=== PATIENT | female | born 1945 | race Caucasian/White ===

== ENCOUNTER → 2017-11-27 | Outpatient (CLI) | payer OTHER, MEDICARE ==
[~2017-11-27] MED LIST: ALEVE220 MG PO; ASPIRIN325 PO; BACTRIM DS TAB1 EACH PO; CENTRUM SILVER1 EAC4 PO; CINNAMON3.7 ML PO; CLARITIN10 MG PO; CLORAZEPATE DI7.5 M1 PO; COLACE100 MG PO; CYFOLEX CAPSUL1 EACH PO; FLEXERIL PO; FOLBIC RF TABL1 EACH PO; HYDROCODONE-AP1 EAC6 PO; IBUPROFEN 600600 M1 PO; IBUPROFEN 800800 M1 PO; LASIX 20 MG TAB20 MG PO; LOSARTAN-HCTZ1 EACH PO; MAGOX 400400 MG PO; MECLIZINE HCL12.5 MG PO; METAMUCIL PAC1 UDPKT PO; MILK OF MA2400 MG/10 PO; MOBIC15 MG PO; NEURONTIN300 MG PO; OIL OF OREGAN1500 MG PO; OXYCODONE HCL 55 MG PO; PERCOCET 7.5-31 EACH PO; TRAMADOL 50 MG50 MG PO; VITAMINC500 PO; XARELTO10 MG PO; [UNRECOGNIZED DRUG - CODE]
== END ==
LOC: M.RAD 11:59
DX: S52.044A Nondisplaced fracture of coronoid process of right ulna, initial encounter for closed fracture (principal); M19.011 Primary osteoarthritis, right shoulder; M85.811 Other specified disorders of bone density and structure, right shoulder; M25.521 Pain in right elbow; M48.02 Spinal stenosis, cervical region; M50.123 Cervical disc disorder at C6-C7 level with radiculopathy; X58.XXXA Exposure to other specified factors, initial encounter; Y93.89 Activity, other specified; Y92.89 Other specified places as the place of occurrence of the external cause; Y99.8 Other external cause status

== ENCOUNTER → 2017-12-03 | Outpatient (CLI) | payer OTHER, MEDICARE | LOC: M.MRI 07:10 | DX: S83.242A Other tear of medial meniscus, current injury, left knee, initial encounter (principal); M25.462 Effusion, left knee; M71.22 Synovial cyst of popliteal space [Baker], left knee; M17.12 Unilateral primary osteoarthritis, left knee; X58.XXXA Exposure to other specified factors, initial encounter; Y93.89 Activity, other specified; Y92.89 Other specified places as the place of occurrence of the external cause; Y99.8 Other external cause status ==

== ENCOUNTER → 2017-12-04 | Outpatient (CLI) | payer OTHER, MEDICARE | LOC: M.MRI 07:12 | DX: S46.811A Strain of other muscles, fascia and tendons at shoulder and upper arm level, right arm, initial encounter (principal); S43.491A Other sprain of right shoulder joint, initial encounter; M19.011 Primary osteoarthritis, right shoulder; X58.XXXA Exposure to other specified factors, initial encounter; Y93.89 Activity, other specified; Y92.89 Other specified places as the place of occurrence of the external cause; Y99.8 Other external cause status ==

== ENCOUNTER → 2017-12-08 | Outpatient (CLI) | payer OTHER, MEDICARE | LOC: M.MRI 11-30 08:08 | DX: M48.061 Spinal stenosis, lumbar region without neurogenic claudication (principal); M51.26 Other intervertebral disc displacement, lumbar region; M47.892 Other spondylosis, cervical region; M47.896 Other spondylosis, lumbar region; M50.221 Other cervical disc displacement at C4-C5 level; M50.222 Other cervical disc displacement at C5-C6 level; M50.223 Other cervical disc displacement at C6-C7 level; N28.1 Cyst of kidney, acquired ==

== ENCOUNTER → 2017-12-16 | Outpatient (CLI) | payer OTHER, MEDICARE | LOC: M.NUC 12-14 14:53 | DX: G89.29 Other chronic pain (principal); M54.5 Low back pain; M25.511 Pain in right shoulder; M25.512 Pain in left shoulder ==

== ENCOUNTER → 2017-12-29 | Outpatient (CLI) | payer OTHER, MEDICARE | LOC: M.CT 10:24 | DX: M47.897 Other spondylosis, lumbosacral region (principal); G95.89 Other specified diseases of spinal cord ==

== ENCOUNTER → 2018-01-06 | Outpatient (CLI) | payer OTHER, MEDICARE | LOC: M.RAD 09:54 | DX: M47.816 Spondylosis without myelopathy or radiculopathy, lumbar region (principal); C90.00 Multiple myeloma not having achieved remission; M54.2 Cervicalgia; M25.511 Pain in right shoulder; M25.512 Pain in left shoulder; G89.29 Other chronic pain ==

== ENCOUNTER 2018-03-23 21:45 | Emergency (ER) | payer OTHER, MEDICARE ==
[~2018-03-23] VITALS: Ht 154.9 cm; Wt 127.0 kg
[~2018-03-23 21:45] MED LIST changes: -ALEVE220 MG PO; -BACTRIM DS TAB1 EACH PO; -CENTRUM SILVER1 EAC4 PO; -CINNAMON3.7 ML PO; -CYFOLEX CAPSUL1 EACH PO; -FLEXERIL PO; -FOLBIC RF TABL1 EACH PO; -MAGOX 400400 MG PO; -MOBIC15 MG PO; -NEURONTIN300 MG PO; -OIL OF OREGAN1500 MG PO; -PERCOCET 7.5-31 EACH PO; -VITAMINC500 PO
[2018-03-23 22:13] LABS: URINE BILIRUBIN NEGATIVE (Negative); URINE BLOOD 3+ (Negative); URINE CLARITY CLEAR; URINE COLOR YELLOW; URINE GLUCOSE-RANDOM NEGATIVE (Negative); URINE KETONES NEGATIVE (Negative); URINE LEUKOCYTES-REFLEX NEGATIVE (Negative); URINE NITRITE-REFLEX NEGATIVE (Negative); URINE PROTEIN NEGATIVE (Negative); URINE UROBILINOGEN 0.2 E.U./dl (0.2-1.0)
[2018-03-23 22:20] LABS: CASTS None Seen /LPF (None Seen); SQUAMOUS >10 Many /LPF (0-3)
[2018-03-23 22:21] LABS: BACTERIA-REFLEX 1-9 Few /HPF (None Seen); CRYSTALS None Seen /LPF (None Seen); URINE RBC >20 Many /HPF (0-2); URINE WBC-REFLEX 0-5 Rare /HPF (0-5)
[2018-03-23 22:42] LABS: ABSOLUTE BASOPHILS 0.2 thou/uL (0.0-0.2); ABSOLUTE EOSINOPHILS 0.3 thou/uL (0.0-0.7); ABSOLUTE LYMPHOCYTES 2.7 thou/uL (0.8-5.3); ABSOLUTE MONOCYTES 0.5 thou/uL (0.0-1.2); ABSOLUTE NEUTROPHILS 8.3 thou/uL (1.6-8.1); BASOPHILS 1.3 %; EOSINOPHILS 2.3 %; HEMATOCRIT 38.9 % (37.0-47.0); HEMOGLOBIN 12.6 gm/dL (12.0-15.0); LYMPHOCYTES 22.9 %; MCH 28.6 pg (26.0-34.0); MCHC 32.5 g/dL (28.0-37.0); MCV 87.9 fL (80.0-100.0); MPV 7.7 fl. (7.2-11.1); NUCLEATED RBCS 0 /100WBC; PLATELET COUNT* 281 thou/uL (150-400); POLYS 69.5 %; RBC 4.42 mil/uL (4.20-5.00); RDW-CV 14.2 % (10.5-14.5)
[2018-03-23 22:49] LABS: CALCIUM 9.2 mg/dL (8.5-10.1); CREATININE 1.3 mg/dL (0.6-1.3); POTASSIUM 4.4 mmol/L (3.5-5.1)
[2018-03-23 22:54] LABS: ALBUMIN 3.4 g/dL (3.4-5.0); TOTAL BILIRUBIN 0.2 mg/dL (<0.1-1.0); TOTAL PROTEIN 7.1 g/dL (6.4-8.2)
[2018-03-23] MEDS ORDERED: FLEXERIL PO (23:54)
[2018-03-23] MEDS ORDERED: BACTRIM DS TAB1 EACH PO (23:54)
[2018-03-24 00:21] VITALS: BP 166/78
== END 2018-03-24 00:24 | disposition home or self-care (01) ==
LOC: M.ERS 21:45
PROVIDERS: Nurse Practitioner Family
DX: S39.012A Strain of muscle, fascia and tendon of lower back, initial encounter (principal); N30.90 Cystitis, unspecified without hematuria; I10 Essential (primary) hypertension; Z88.1 Allergy status to other antibiotic agents; Z88.8 Allergy status to other drugs, medicaments and biological substances; X58.XXXA Exposure to other specified factors, initial encounter; Y93.89 Activity, other specified; Y92.89 Other specified places as the place of occurrence of the external cause; Y99.8 Other external cause status

== ENCOUNTER → 2018-04-20 | Outpatient (CLI) | payer OTHER, MEDICARE ==
[~2018-04-20] MED LIST changes: +ALEVE220 MG PO; +BACTRIM DS TAB1 EACH PO; +CENTRUM SILVER1 EAC4 PO; +CINNAMON3.7 ML PO; +CYFOLEX CAPSUL1 EACH PO; +FLEXERIL PO; +FOLBIC RF TABL1 EACH PO; +MAGOX 400400 MG PO; +MOBIC15 MG PO; +NEURONTIN300 MG PO; +OIL OF OREGAN1500 MG PO; +PERCOCET 7.5-31 EACH PO; +VITAMINC500 PO
== END ==
LOC: M.RAD 11:37
DX: M47.898 Other spondylosis, sacral and sacrococcygeal region (principal); M47.816 Spondylosis without myelopathy or radiculopathy, lumbar region; D25.9 Leiomyoma of uterus, unspecified; M47.814 Spondylosis without myelopathy or radiculopathy, thoracic region

== ENCOUNTER → 2018-06-03 | Outpatient (CLI) | payer OTHER, MEDICARE ==
[2018-06-03 10:26] LABS: ABSOLUTE BASOPHILS 0.1 thou/uL (0.0-0.2); ABSOLUTE EOSINOPHILS 0.4 thou/uL (0.0-0.7); ABSOLUTE LYMPHOCYTES 2.1 thou/uL (0.8-5.3); ABSOLUTE MONOCYTES 0.4 thou/uL (0.0-1.2); ABSOLUTE NEUTROPHILS 5.4 thou/uL (1.6-8.1); EOSINOPHILS 4.3 %; HEMATOCRIT 37.3 % (37.0-47.0); HEMOGLOBIN 12.3 gm/dL (12.0-15.0); LYMPHOCYTES 25.7 %; MCHC 33.1 g/dL (28.0-37.0); MCV 87.7 fL (80.0-100.0); MONOCYTES 4.7 %; MPV 7.9 fl. (7.2-11.1); NUCLEATED RBCS 0 /100WBC; PLATELET COUNT* 255 thou/uL (150-400); POLYS 64.3 %; RBC 4.26 mil/uL (4.20-5.00); RDW-CV 14.1 % (10.5-14.5); WBC 8.4 thou/uL (4.0-11.0)
[2018-06-03 10:46] LABS: ALBUMIN 3.5 g/dL (3.4-5.0); CALCIUM 9.3 mg/dL (8.5-10.1); POTASSIUM 3.8 mmol/L (3.5-5.1); TOTAL BILIRUBIN 0.4 mg/dL (<0.1-1.0); TOTAL PROTEIN 6.9 g/dL (6.4-8.2)
[2018-06-07 17:12] LABS: GLOBULIN TOTAL 3.2 g/dL (2.2-3.9); M-SPIKE Not Observed g/dL (Not Observed)
== END ==
LOC: M.CT 09:33 → M.LAB 10:00 → M.CT 11:00
DX: K80.20 Calculus of gallbladder without cholecystitis without obstruction (principal); D49.2 Neoplasm of unspecified behavior of bone, soft tissue, and skin; D25.9 Leiomyoma of uterus, unspecified; K42.9 Umbilical hernia without obstruction or gangrene; M47.816 Spondylosis without myelopathy or radiculopathy, lumbar region; R91.8 Other nonspecific abnormal finding of lung field

== ENCOUNTER → 2018-06-25 | Outpatient (CLI) | payer OTHER, MEDICARE | LOC: M.MRI 10:47 | DX: N28.9 Disorder of kidney and ureter, unspecified (principal); I10 Essential (primary) hypertension ==

== ENCOUNTER → 2018-08-23 | Outpatient (CLI) | payer OTHER, MEDICARE ==
[2018-08-23 16:49] LABS: CREATININE 1.1 mg/dL (0.6-1.3)
== END ==
LOC: M.LAB 16:13 → M.MRI 16:30 → M.LAB 16:30
PROVIDERS: Orthopaedic Surgery
DX: M79.601 Pain in right arm (principal)

== ENCOUNTER → 2018-09-16 | Outpatient (CLI) | payer OTHER, MEDICARE | LOC: M.MRI 09:51 → M.LAB 10:30 → M.MRI 11:30 | DX: N28.9 Disorder of kidney and ureter, unspecified (principal); K42.9 Umbilical hernia without obstruction or gangrene ==

== ENCOUNTER 2018-09-22 10:27 | Emergency (ER) | payer OTHER, MEDICARE ==
[~2018-09-22] VITALS: Ht 154.9 cm; Wt 124.7 kg
[~2018-09-22 10:27] MED LIST changes: -ALEVE220 MG PO; -CENTRUM SILVER1 EAC4 PO; -CINNAMON3.7 ML PO; -CYFOLEX CAPSUL1 EACH PO; -FOLBIC RF TABL1 EACH PO; -MAGOX 400400 MG PO; -MOBIC15 MG PO; -NEURONTIN300 MG PO; -OIL OF OREGAN1500 MG PO; -PERCOCET 7.5-31 EACH PO; -VITAMINC500 PO
[2018-09-22] MEDS ORDERED: ALEVE220 MG PO (10:38)
[2018-09-22] MEDS ORDERED: CYFOLEX CAPSUL1 EACH PO (10:39)
[2018-09-22] MEDS ORDERED: CINNAMON3.7 ML PO (10:39)
[2018-09-22] MEDS ORDERED: FOLBIC RF TABL1 EACH PO (10:39)
[2018-09-22] MEDS ORDERED: OIL OF OREGAN1500 MG PO (10:39)
[2018-09-22] MEDS ORDERED: CENTRUM SILVER1 EAC4 PO (10:39)
[2018-09-22] MEDS ORDERED: VITAMINC500 PO (10:39)
[2018-09-22] MEDS ORDERED: MAGOX 400400 MG PO (10:39)
[2018-09-22] MEDS ORDERED: MOBIC15 MG PO (14:49)
[2018-09-22] MEDS ORDERED: PERCOCET 7.5-31 EACH PO (14:49)
[2018-09-22] MEDS ORDERED: NEURONTIN300 MG PO (14:52)
[2018-09-22 15:04] VITALS: BP 144/70
== END 2018-09-22 15:05 | disposition home or self-care (01) ==
LOC: M.ERS 10:27
DX: S42.301A Unspecified fracture of shaft of humerus, right arm, initial encounter for closed fracture (principal); W19.XXXA Unspecified fall, initial encounter; Y93.89 Activity, other specified; Y92.89 Other specified places as the place of occurrence of the external cause; Y99.8 Other external cause status; I10 Essential (primary) hypertension; Z88.1 Allergy status to other antibiotic agents; Z88.8 Allergy status to other drugs, medicaments and biological substances

== ENCOUNTER → 2018-09-24 | Outpatient (CLI) | payer OTHER, MEDICARE ==
[~2018-09-24] MED LIST changes: +ALEVE220 MG PO; +CENTRUM SILVER1 EAC4 PO; +CINNAMON3.7 ML PO; +CYFOLEX CAPSUL1 EACH PO; +FOLBIC RF TABL1 EACH PO; +MAGOX 400400 MG PO; +MOBIC15 MG PO; +NEURONTIN300 MG PO; +OIL OF OREGAN1500 MG PO; +PERCOCET 7.5-31 EACH PO; +VITAMINC500 PO
[2018-09-24 14:49] LABS: ABSOLUTE BASOPHILS 0.1 thou/uL (0.0-0.2); ABSOLUTE EOSINOPHILS 0.3 thou/uL (0.0-0.7); ABSOLUTE LYMPHOCYTES 2.5 thou/uL (0.8-5.3); ABSOLUTE MONOCYTES 0.5 thou/uL (0.0-1.2); ABSOLUTE NEUTROPHILS 6.4 thou/uL (1.6-8.1); EOSINOPHILS 3.1 %; HEMATOCRIT 36.8 % (37.0-47.0); HEMOGLOBIN 12.1 gm/dL (12.0-15.0); LYMPHOCYTES 25.1 %; MCHC 32.9 g/dL (28.0-37.0); MPV 7.8 fl. (7.2-11.1); NUCLEATED RBCS 0 /100WBC; PLATELET COUNT* 265 thou/uL (150-400); POLYS 65.8 %; RBC 4.18 mil/uL (4.20-5.00); RDW-CV 14.5 % (10.5-14.5); WBC 9.8 thou/uL (4.0-11.0)
[2018-09-24 14:59] LABS: ALBUMIN 3.1 g/dL (3.4-5.0); CREATININE 1.2 mg/dL (0.6-1.3); POTASSIUM 3.5 mmol/L (3.5-5.1); TOTAL BILIRUBIN 0.4 mg/dL (<0.1-1.0); TOTAL PROTEIN 6.7 g/dL (6.4-8.2)
== END ==
LOC: M.LAB 14:04
PROVIDERS: Orthopaedic Surgery
DX: M84.421A Pathological fracture, right humerus, initial encounter for fracture (principal); D49.2 Neoplasm of unspecified behavior of bone, soft tissue, and skin

== ENCOUNTER → 2019-02-09 | Outpatient (CLI) | payer OTHER, MEDICARE ==
[~2019-02-09] MED LIST changes: +GABAPENTIN 100100 MG PO; +POTASSIUM20 PO
== END ==
LOC: M.RAD 12:50
DX: S42.391D Other fracture of shaft of right humerus, subsequent encounter for fracture with routine healing (principal); Z88.1 Allergy status to other antibiotic agents; X58.XXXD Exposure to other specified factors, subsequent encounter

== ENCOUNTER → 2019-04-28 | Outpatient (CLI) | payer OTHER, MEDICARE | LOC: M.ULTRA 10:11 | DX: N28.1 Cyst of kidney, acquired (principal) ==

== ENCOUNTER → 2019-08-19 | Outpatient (CLI) | payer OTHER, MEDICARE | LOC: M.LAB 12:30 → M.MRI 13:30 → M.LAB 16:30 → M.MRI 17:30 | DX: D49.2 Neoplasm of unspecified behavior of bone, soft tissue, and skin (principal) ==

== ENCOUNTER → 2019-10-04 | Outpatient (CLI) | payer OTHER, MEDICARE | LOC: M.LAB 10:30 → M.MRI 11:30 | DX: N28.1 Cyst of kidney, acquired (principal); N28.89 Other specified disorders of kidney and ureter ==

== ENCOUNTER → 2019-11-23 | Outpatient (CLI) | payer MEDICARE, OTHER | LOC: M.ULTRA 10:39 | DX: N28.1 Cyst of kidney, acquired (principal) ==

== ENCOUNTER → 2019-11-30 | Outpatient (CLI) | payer MEDICARE, OTHER | LOC: M.MRI 12:13 | DX: S83.242A Other tear of medial meniscus, current injury, left knee, initial encounter (principal); M25.762 Osteophyte, left knee; M25.462 Effusion, left knee; X58.XXXA Exposure to other specified factors, initial encounter; Y93.89 Activity, other specified; Y92.89 Other specified places as the place of occurrence of the external cause; Y99.8 Other external cause status ==

== ENCOUNTER → 2019-12-08 | Outpatient (CLI) | payer MEDICARE, OTHER | LOC: M.RAD 11:35 | DX: R05 Cough (principal); Z95.2 Presence of prosthetic heart valve ==

== ENCOUNTER 2019-12-26 05:43 | Inpatient (IN) | payer MEDICARE, OTHER ==
[2019-12-15 09:26] LABS: ABSOLUTE EOSINOPHILS 0.2 thou/uL (0.0-0.7); ABSOLUTE LYMPHOCYTES 0.8 thou/uL (0.8-5.3); ABSOLUTE MONOCYTES 0.4 thou/uL (0.0-1.2); ABSOLUTE NEUTROPHILS 3.8 thou/uL (1.6-8.1); BASOPHILS 0.6 %; HEMATOCRIT 32.4 % (37.0-47.0); HEMOGLOBIN 11.1 gm/dL (12.0-15.0); MCH 30.9 pg (26.0-34.0); MCHC 34.3 g/dL (28.0-37.0); MONOCYTES 7.2 %; MPV 6.7 fl. (7.2-11.1); NUCLEATED RBCS 0 /100WBC; PLATELET COUNT* 216 thou/uL (150-400); POLYS 73.2 %; RDW-CV 14.7 % (10.5-14.5); WBC 5.2 thou/uL (4.0-11.0)
[2019-12-15 09:34] LABS: APTT 24.7 Seconds (25.0-31.3)
[2019-12-15 09:37] LABS: ALBUMIN 2.9 g/dL (3.4-5.0); CALCIUM 8.5 mg/dL (8.5-10.1); POTASSIUM 3.9 mmol/L (3.5-5.1); TOTAL BILIRUBIN 0.3 mg/dL (<0.1-1.0)
[2019-12-15 11:18] LABS: ESR (SEDRATE) 50 mm/hr (0-30)
[2019-12-16 02:06] LABS: GLYCOHEMOGLOBIN (HGB A1C) 5.6 % (4.8-5.6)
[~2019-12-26] VITALS: Ht 157.5 cm; Wt 118.8 kg
--- NOTE | ~2019-12-26 | OP ---
[address] [address] OPERATIVE REPORT Name: NIEVES PONCE Room: [address] IN .R.#: [id number] Admission: 12/26/19 Attend Phys: Osbaldo Vasquez MD Discharge: Date of : 47 Report #: [id number] THIS REPORT FOR: //name// cc: Mario Miles MD, David L. MD ~ THIS REPORT FOR: //name// CC: Osbaldo Miles DICTATED BY: Taco Santo DO DATE OF SERVICE: 12/26/2019 PREOPERATIVE DIAGNOSES: 1. Advanced osteoarthritis of the left knee. 2. Morbid obesity with body mass index of 48. POSTOPERATIVE DIAGNOSES: 1. Advanced osteoarthritis of the left knee. 2. Morbid obesity with body mass index of 48. PROCEDURE PERFORMED: Left total knee arthroplasty. SURGEON: Mario Nava DO. ASSISTANTS: Shirin Moran PA-C; Taco Santo DO.; Endy Rodriguez DO. ANESTHESIA: General, local nerve block per Anesthesia. ESTIMATED BLOOD LOSS: 100 mL. SPECIMENS: None. COMPLICATIONS: None. ANTIBIOTICS: 2 grams Ancef IV piggyback preop. FINDINGS: The patient had significant eburnated bone, osteophytic lipping and sclerosis noted of all 3 compartments of the knee on gross inspection. There were subchondral cystic changes appreciated. There was hypertrophic synovium, but gross inspection of the synovium appeared normal in appearance. DISPOSITION: Stable to PACU. IMPLANTS: [address] [address] OPERATIVE REPORT Name: NIEVES PONCE Tamiko Room: [address] IN .R.#: [id number] Admission: 12/26/19 Attend Phys: Osbaldo Vasquez MD Discharge: Date of : 47 Report #: [id number] 1. A size 6 PS David Persona femur. 2. A size E anatomic David tibial baseplate. 3. A 12 mm PS polyethylene insert and then a size 31 mm patella button. 4. Two bags of Palacos cement with gentamicin. INDICATIONS FOR PROCEDURE: The patient is a pleasant 74-year-old female, who has been dealing with longstanding left knee pain and degenerative joint changes for many years. These symptoms have worsened over the last year. She attempted conservative measures for at least 6 months. These have not been beneficial and she continued to worsen and become more sedentary and her pain is affecting her ADLs. Risks, benefits, complications, alternatives and indications for surgery were discussed with her. She voiced understanding and wished to proceed. DESCRIPTION OF PROCEDURE: The patient was seen in the preoperative area. Correct operative site was marked. Verbal and written consent was obtained. She was transferred to the operative suite and placed supine on the table, given benefit of general anesthesia by the anesthesia team. Left lower extremity and a well-padded tourniquet placed, which was inflated for a total of 50 minutes at 300 mmHg during the procedure. Left lower extremity was prepped and draped in normal sterile fashion. Timeout was performed, all in attendance were in agreement with correct operative site and procedure to be performed. A 10 blade scalpel was used to make the anterior longitudinal incision over the knee. It was taken down sharply to the level of the capsule. Once we had adequate visualization of this, a new 10 blade scalpel was used to perform a medial parapatellar arthrotomy. We then noted findings as stated above and utilizing a rongeur. We removed some osteophytes of the distal femur and then gained access for our intramedullary guide with the drill. Intramedullary guide was placed and taken extra 2 mm of cut or valgus block was pinned in place. An oscillating saw was used to resect distal femur. Excess bone osteophytes were removed with a rongeur and her AP sizer was then placed on the distal femur. This was measured as a size 6 and after utilizing the 3 degrees of external rotation, drill holes were made and then the 4-in-1 cutting block was malleted into place, held cross pins. Oscillating saw was once again used to perform resection of 4-in-1 cuts and excess bone osteophytes once again removed with a rongeur. The cutting block was removed and our external tibial guide was placed and taking 10 mm off our high lateral side utilizing the depth stylus. Our cutting block was pinned in place and then oscillating saw was once again used to resect the proximal tibia. Excess bone osteophyte was once again removed with a rongeur and electrocautery from soft tissue attachments and the knee was taken through extension, 12 block was placed and found to have good balance with varus and valgus stress in full extension. We then used a size E tibia, held in place with bone screws and malleted into place our distal femoral trial and then resected for posterior stabilized box. A 12 mm PS poly was then inserted. The knee was taken through range of motion, [address] [address] OPERATIVE REPORT Name: NIEVES PONCE Room: [address] IN ..#: [id number] Admission: 12/26/19 Attend Phys: Osbaldo Vasquez MD Discharge: Date of : 47 Report #: [id number] found to have excellent motion and balancing in all planes. The patella was then resected utilizing oscillating saw, denervated with electrocautery and then measured at 31. Our drill holes were made for the three pegs. Trial patella was inserted. Knee was taken through range of motion, found to have excellent patellar tracking. We then completed preparation of the distal femur, removed the trial implants with the exception of the tibia, which was further prepared with intramedullary reamer followed by the cruciate punch. The tibial tray was then removed as well. The cut bony surfaces were then thoroughly irrigated with pulsatile lavage. The meniscus and soft tissue were excised appropriately as well as any remaining osteophytes of the proximal tibia or distal femur. Cement was mixed on the back table under vacuum suction and placed on the cut bony surfaces as well as the final implants were malleted into place. Excess cement was removed with Ana [place] and our final 12 mm poly was inserted and secured in place appropriately. Knee was held in approximately 10 degrees of flexion while cement hardened and the patellar clamp was left in place as well. The knee was then once again taken through range of motion, found to have excellent balancing in all planes and good full range of motion. The joint was thoroughly irrigated with pulsatile lavage once again and make sure there was no synovitis remained. Capsule was then closed utilizing #1 Vicryl in [id number] fashion, followed by #1 running Stratafix barbed suture. The superficial tissues were irrigated with pulsatile lavage and the skin was closed utilizing a 2-0 Vicryl in inverted subcuticular fashion followed by running subcuticular 3-0 Stratafix and then finally covered with Dermabond skin glue. A sterile Mepilex dressing was placed and then the patient was awoken from anesthesia and transferred to PACU in stable condition. All needle and scrub counts were correct at the end of the case x 2. I attest that Dr. Nava was present through all critical decision making aspects of the case. By: [id number] Nava DO /nt
[~2019-12-26 05:43] MED LIST changes: +ADVIL200 M3 PO; +ALLOPURINOL 10100 M3 PO
[2019-12-26 07:30] VITALS: BP 141/74
[2019-12-26 15:11] VITALS: BP 169/69
--- NOTE | 2019-12-26 16:58 | NUR ---
PT ALERT AND ORIENTED AND DROWSY. PT VOMITED POST OP DURING THERAPY. PT DENIES ANY PAIN AT THIS TIME. PT EDUCATED ON USING CALL LIGHT WHEN NEEDING PAIN MEDS. PT UP TO CHAIR. FALL RISK PRECAUTIONS IN PLACE. HOURLY ROUNDING COMPLETED. WILL CONTINUE TO MONITOR.
[2019-12-26 20:50] VITALS: BP 119/57
[2019-12-27] VITALS: BP 109/55
[2019-12-27 04:00] VITALS: BP 140/64
--- NOTE | 2019-12-27 05:57 | NUR ---
PT A&O, ON 2L BY NC WITH CAPNO. MEDS GIVEN ORDERED. PAIN MANAGED WITH OXYCONTIN AND NORCO. UP TO THE BSC WITH 2. NO N/V THIS SHIFT. POLAR IN PLACE. IVF RUNNING ORDERED. HOURLY ROUNDING COMPLETED. WILL CONTINUE TO MONITOR.
[2019-12-27 07:20] VITALS: BP 109/47
[2019-12-27 09:42] LABS: HEMATOCRIT 27.7 % (37.0-47.0); HEMOGLOBIN 9.3 gm/dL (12.0-15.0)
--- NOTE | 2019-12-27 15:07 | NUR ---
SPOKE WITH PT. SHE WAS ALERT AND ORIENTED. SHE SAID SHE LIVES WITH HER . HE CAN ASSIST HER NEEDED AT DISCHARGE. WILL NEED A FRONT WHEEL WALKER. SHE HAS AN OLD ONE THAT HAS 4 WHEELS ON IT. AUTH OBTAINED FROM [employer]. THERAPY TO DISPENSE A FWW UPON DISCHARGE. ORDER IN FRONT OF CHART. FAXED ORDER TO [facility] [facility]. PT.SAID NORMALLY SHE IS INDEPENDENT AT HOME. SHE WOULD LIKE TO HAVE HOME HEALTH TO START. SHE CANNOT REMEMBER NAME OF AGENCY SHE USED AFTER SNF IN 2017. HOPES TO GO HOME TOMORROW EVENING. CM WILL CALL IN PRESCRIPTION FOR ELIQUIS WRITTEN TO HER PHARMACY AND CHECK COPAY.
[2019-12-27 15:13] VITALS: BP 109/47
[2019-12-27 16:00] VITALS: BP 110/58
--- NOTE | 2019-12-27 17:20 | NUR ---
PT REMAINED ALERT AND ORIENTED. PAIN MEDS GIVEN ORDERED. PT RESTING IN BED AND UP FOR MEALS. PT WORKED WITH THERAPY. STAYING OVERNIGHT FOR more therapies and pain control. fall risk precautions in place. hourly rounding completed. will continue to monitor.
[2019-12-27 21:05] VITALS: BP 115/58
--- NOTE | 2019-12-28 03:53 | NUR ---
REFUSED LABS 0352 ON 12/28/19
--- NOTE | 2019-12-28 04:28 | NUR ---
PATIENT REQUIRES EXTRA TIME TO GET UP TO COMMODE. USING POLAR PACK, LEV VANN AND SCD. THURSDAY IS POD#2. RECEIVED SCHEDULED OXYCONTIN AND MEDS SCHEDULED. PRN HYDROCODONE FOR PAIN. REFUSED AM LABS WHICH WERE HCT AND HGB. PLAN IS TO WORK WITH THERAPY AND PAIN MANAGMENT. WILL CONTINUE TO FOLLOW PLAN OF CARE.
[2019-12-28 08:00] VITALS: BP 119/47
[2019-12-28 08:20] LABS: HEMATOCRIT 25.9 % (37.0-47.0); HEMOGLOBIN 8.9 gm/dL (12.0-15.0)
--- NOTE | 2019-12-28 16:36 | NUR ---
PT REMAINED ALERT AND ORIENTED. PT DROWSY DURING SHIFT, PT BELIEVES GIVING TO MUCH PAIN MEDS, PT EDUCATED ON USING CALL LIGHT WHEN NEEDING PAIN MEDS. PT WORKED WITH THERAPY. FALL RISK PRECAUTIONS IN PLACE. HOURLY ROUNDING COMPLETED. WILL CONTINUE TO MONITOR.
[2019-12-28 19:33] VITALS: BP 150/43
--- NOTE | 2019-12-29 04:18 | NUR ---
ASSUMED CARE OF PT 12/28/19 AT APPROX 1930, PT A&OX4, PT ON ROOM AIR, VSS, CPM MONITORED, PAIN MEDS REQUESTED 1X THIS SHIFT. ASSESSMENTS AND HOURLY ROUNDINGS COMPLETED. WILL CONTINUE TO MONITOR.
[2019-12-29 08:14] VITALS: BP 146/62
--- NOTE | 2019-12-29 12:08 | NUR ---
SPOKE WITH PT.AND ABOUT GOING TO SNF DUE TO SLOW PROGRESSION IN THERAPY. SEEMS TO FAVOR THIS. PT.SAID SHE WOULD RATHER GO HOME BUT 'IF THAT IS WHAT HE WANTS, I WILL GO TO SNF FOR A SHORT STAY.' IMPRESSED UPON HER THAT WE WANT A SAFE DISCHARGE PLAN FOR HER. SHE SAID [facility]. ASKED ABOUT [facility], SINCE THEY LIVE IN [place]. PT.AGREEABLE. SAID 'WHATEVER IS EASIER FOR HIM'. REFERRAL FAXED TO MYESHA AT [facility] TO REVIEW.
[2019-12-29 13:45] LABS: HEMATOCRIT 24.9 % (37.0-47.0); HEMOGLOBIN 8.3 gm/dL (12.0-15.0); MCH 31.1 pg (26.0-34.0); MCHC 33.4 g/dL (28.0-37.0); MCV 93.1 fL (80.0-100.0); MPV 7.3 fl. (7.2-11.1); NUCLEATED RBCS 0 /100WBC; PLATELET COUNT* 176 thou/uL (150-400); RBC 2.67 mil/uL (4.20-5.00); RDW-CV 14.9 % (10.5-14.5); WBC 7.3 thou/uL (4.0-11.0)
[2019-12-29 14:01] LABS: ALBUMIN 2.3 g/dL (3.4-5.0); CALCIUM 8.1 mg/dL (8.5-10.1); POTASSIUM 3.8 mmol/L (3.5-5.1); TOTAL BILIRUBIN 0.4 mg/dL (<0.1-1.0); TOTAL PROTEIN 5.6 g/dL (6.4-8.2)
[2019-12-29 14:31] LABS: ABSOLUTE EOSINOPHILS 0.2 thou/uL (0.0-0.7); ABSOLUTE LYMPHOCYTES 0.6 thou/uL (0.8-5.3); ABSOLUTE MONOCYTES 0.2 thou/uL (0.0-1.2); ABSOLUTE NEUTROPHILS 6.3 thou/uL (1.6-8.1); PLATELET ESTIMATE ADEQUATE
[2019-12-29 14:49] LABS: ESR (SEDRATE) 100 mm/hr (0-30)
[2019-12-29 15:46] VITALS: BP 142/66
[2019-12-29] MEDS ORDERED: ELIQUIS2.5 MG PO (15:49)
[2019-12-29] MEDS ORDERED: HYDROCODON-ACE1 EAC7 PO (15:50)
[2019-12-29] MEDS ORDERED: TRAMADOL 50 MG50 MG PO (15:51)
--- NOTE | 2019-12-29 16:08 | NUR ---
PT PROGRESSING TOWARDS GOALS THIS SHIFT. ASSUMED CARE OF PT AROUND 0730 THIS AM. REFER TO ASSESSMENT. PT HAS DC ORDERS. ANTICIPATE TRANSFER TO [facility] AROUND 1700 THIS EVENING. NO OTHER CONCERNS AT THIS TIME. CLWR. WCTM.
== END 2019-12-29 17:20 | DRG 470 ==
LOC: M.TBA 05:43 → M.PRE 09:45 → M.TBA 13:01 → M.ORTHSURG 13:01 → M.PRE 13:56 → M.ORTHSURG 14:38
PROVIDERS: Internal Medicine; Orthopaedic Surgery; ADMIT Internal Medicine
DX: M17.12 Unilateral primary osteoarthritis, left knee (principal); D62 Acute posthemorrhagic anemia; E66.01 Morbid (severe) obesity due to excess calories; I10 Essential (primary) hypertension; Z79.899 Other long term (current) drug therapy; Z68.42 Body mass index [BMI] 45.0-49.9, adult; Z88.1 Allergy status to other antibiotic agents; Z88.8 Allergy status to other drugs, medicaments and biological substances; Z79.51 Long term (current) use of inhaled steroids; Z85.72 Personal history of non-Hodgkin lymphomas

== ENCOUNTER → 2020-03-28 | Outpatient (CLI) | payer MEDICARE, OTHER ==
[~2020-03-28] VITALS: Ht 160 cm; Wt 115.2 kg
[~2020-03-28] MED LIST changes: +B-125000 MC1 PO; +C-1000 WITH R1000 MG PO; +CALCIUM CITRAT PO; +CLARITIN10 M3 PO; +ELIQUIS2.5 MG PO; +FLONASE 0.05%50 MCG; +HYDROCODON-ACE1 EAC7 PO; +MAGNESIUM250 M1 PO; +NAPROXEN DELAY500 M1 PO
[2020-03-28 08:13] VITALS: BP 141/69; BP 143/68
[2020-03-28 08:19] LABS: HEMATOCRIT 35.5 % (37.0-47.0); HEMOGLOBIN 11.9 gm/dL (12.0-15.0); MCH 30.7 pg (26.0-34.0); MCHC 33.5 g/dL (28.0-37.0); MCV 91.5 fL (80.0-100.0); MPV 7.1 fl. (7.2-11.1); RBC 3.88 mil/uL (4.20-5.00); RDW-CV 14.6 % (10.5-14.5); WBC 5.3 thou/uL (4.0-11.0)
[2020-03-28 08:26] LABS: CALCIUM 8.7 mg/dL (8.5-10.1); POTASSIUM 3.7 mmol/L (3.5-5.1)
[2020-03-28 08:28] LABS: APTT 25.5 Seconds (25.0-31.3)
== END | disposition home or self-care (01) ==
LOC: M.INT 07:37
PROVIDERS: Radiology Diagnostic Radiology
DX: Z45.2 Encounter for adjustment and management of vascular access device (principal); I10 Essential (primary) hypertension; M17.12 Unilateral primary osteoarthritis, left knee; Z85.72 Personal history of non-Hodgkin lymphomas; Z98.890 Other specified postprocedural states; Z79.899 Other long term (current) drug therapy; Z96.652 Presence of left artificial knee joint

== ENCOUNTER 2020-07-01 11:40 | Emergency (ER) | payer MEDICARE, OTHER ==
[~2020-07-01] VITALS: Ht 157.5 cm; Wt 119.8 kg
[2020-07-01] MEDS ORDERED: GARLIC1000 MG PO (11:59)
[2020-07-01] MEDS ORDERED: ALPHA LIPOIC A200 M1 PO (12:00)
[2020-07-01] MEDS ORDERED: L-ARGININE1000 MG PO (12:00)
[2020-07-01 12:01] LABS: URINE BILIRUBIN NEGATIVE (Negative); URINE BLOOD NEGATIVE (Negative); URINE CLARITY CLEAR; URINE COLOR YELLOW; URINE GLUCOSE-RANDOM NEGATIVE (Negative); URINE KETONES NEGATIVE (Negative); URINE LEUKOCYTES-REFLEX NEGATIVE (Negative); URINE NITRITE-REFLEX NEGATIVE (Negative); URINE PROTEIN NEGATIVE (Negative); URINE UROBILINOGEN 0.2 E.U./dl (0.2-1.0)
[2020-07-01] MEDS ORDERED: CENTRUM COMPLE1 EACH PO (12:01)
[2020-07-01] MEDS ORDERED: GLUCOSAMINE-CH1 EAC6 PO (12:01)
[2020-07-01 12:32] LABS: ABSOLUTE EOSINOPHILS 0.2 thou/uL (0.0-0.7); ABSOLUTE LYMPHOCYTES 0.9 thou/uL (0.8-5.3); ABSOLUTE MONOCYTES 0.3 thou/uL (0.0-1.2); ABSOLUTE NEUTROPHILS 3.8 thou/uL (1.6-8.1); BASOPHILS 0.7 %; EOSINOPHILS 3.4 %; HEMATOCRIT 34.1 % (37.0-47.0); HEMOGLOBIN 11.5 gm/dL (12.0-15.0); LYMPHOCYTES 16.4 %; MCH 31.2 pg (26.0-34.0); MCHC 33.6 g/dL (28.0-37.0); MCV 92.9 fL (80.0-100.0); MONOCYTES 6.6 %; MPV 7.2 fl. (7.2-11.1); NUCLEATED RBCS 0 /100WBC; PLATELET COUNT* 177 thou/uL (150-400); POLYS 72.9 %; RBC 3.67 mil/uL (4.20-5.00); RDW-CV 14.5 % (10.5-14.5); WBC 5.2 thou/uL (4.0-11.0)
[2020-07-01 12:38] LABS: CALCIUM 8.4 mg/dL (8.5-10.1); CREATININE 1.1 mg/dL (0.6-1.3); POTASSIUM 3.9 mmol/L (3.5-5.1)
[2020-07-01 12:44] LABS: ALBUMIN 3.3 g/dL (3.4-5.0); TOTAL BILIRUBIN 0.3 mg/dL (<0.1-1.0); TOTAL PROTEIN 6.3 g/dL (6.4-8.2)
[2020-07-01] MEDS ORDERED: LEVOXYL75 MCG PO (12:44)
[2020-07-01] MEDS ORDERED: REMERON 30 MG T30 M1 PO (12:44)
[2020-07-01] MEDS ORDERED: CINNAMON500 MG PO (12:46)
[2020-07-01] MEDS ORDERED: CHROMIUM PICO400 MCG PO (12:46)
[2020-07-01] MEDS ORDERED: ECHINACEA125 MG (12:47)
[2020-07-01] MEDS ORDERED: CO-ENZYME Q101 EACH PO (12:47)
[2020-07-01] MEDS ORDERED: VITAMIN E1000 UNIT PO (12:48)
[2020-07-01] MEDS ORDERED: OIL OF OREGAN1500 MG PO (12:48)
[2020-07-01] MEDS ORDERED: KLOR-CON 10 ER10 MEQ (12:49)
[2020-07-01] MEDS ORDERED: APPLE CIDER VI1 EAC1 PO (12:49)
[2020-07-01] MEDS ORDERED: HYDROCODON-ACE1 EAC7 PO (16:52)
[2020-07-01 16:55] VITALS: BP 123/58
--- NOTE | 2020-07-02 09:30 | EKG ---
[place] [address] ELECTROCARDIOGRAM REPORT Name: PONCENIEVES MOORE Tamiko Room: [facility]#: [id number] Admission: 07/01/20 Attend Phys: Discharge: 07/01/20 Date of : 47 Date of Service: 07/01/20 1157 Report #: [id number] THIS REPORT FOR: //name// [facility] ED Test Date: 2020-07-01 Test Time: 11:57:50 Pat Name: NIEVES PONCE Department: Room: Gender: Cardiac Cath Lab Radiology Technologist: : [id number] Requested By: Khadar Mcarthur Order Number: [id number] MD: Mario Matthew Measurements Intervals [place] Rate: 84 P: 41 DE: 163 QRS: -14 QRSD: 92 T: 19 QT: 398 QTc: 471 Interpretive Statements Sinus rhythm Low voltage, precordial leads Consider anterior infarct Compared to ECG 12/11/2016 09:46:13 Low QRS voltage now present Myocardial infarct finding now present Electronically Signed On 07-02-2020 9:30:27 CDT by Mario Matthew [email or web address] <ELECTRONICALLY SIGNED> By: Mario Matthew MD, MERGED WITH [facility] 07/02/20 0930 1157 1157 Mario Matthew MD, MERGED WITH [facility] /EPI
== END 2020-07-01 16:55 | disposition home or self-care (01) ==
LOC: M.ERS 11:40
PROVIDERS: Nurse Practitioner Psychiatric/Mental Health
DX: K80.80 Other cholelithiasis without obstruction (principal); N28.89 Other specified disorders of kidney and ureter; I10 Essential (primary) hypertension; Z96.653 Presence of artificial knee joint, bilateral; Z88.1 Allergy status to other antibiotic agents; Z88.8 Allergy status to other drugs, medicaments and biological substances

== ENCOUNTER → 2020-10-15 | Outpatient (CLI) | payer MEDICARE, OTHER ==
[~2020-10-15] MED LIST changes: +ALPHA LIPOIC A200 M1 PO; +APPLE CIDER VI1 EAC1 PO; +CENTRUM COMPLE1 EACH PO; +CHROMIUM PICO400 MCG PO; +CINNAMON500 MG PO; +CO-ENZYME Q101 EACH PO; +ECHINACEA125 MG; +GARLIC1000 MG PO; +GLUCOSAMINE-CH1 EAC6 PO; +KLOR-CON 10 ER10 MEQ; +L-ARGININE1000 MG PO; +LEVOXYL75 MCG PO; +REMERON 30 MG T30 M1 PO; +VITAMIN E1000 UNIT PO
== END ==
LOC: M.RAD 13:25
PROVIDERS: ATTEND Family Medicine
DX: Z12.31 Encounter for screening mammogram for malignant neoplasm of breast (principal); M85.88 Other specified disorders of bone density and structure, other site; Z78.0 Asymptomatic menopausal state

== ENCOUNTER → 2021-08-20 | Outpatient (CLI) | payer MEDICARE, OTHER ==
[2021-08-20 11:13] LABS: CREATININE 1.1 mg/dL (0.6-1.3)
== END ==
LOC: M.LAB 07-25 10:21
PROVIDERS: ATTEND Urology
DX: N28.1 Cyst of kidney, acquired (principal); N28.89 Other specified disorders of kidney and ureter; M54.50 Low back pain, unspecified